=== PATIENT | male | born 1995 | race Caucasian/White ===

== ENCOUNTER 2018-03-16 10:44 | Emergency (ER) | payer BC ==
--- NOTE | 2018-03-16 11:00 | EDM.PDOC ---
ED HPI GENERAL MEDICAL PROBLEM - General Chief Complaint: Lower Extremity Injury/Pain Stated Complaint: ROLLED LEFT ANKLE Time Seen by Provider: 03/16/18 10:58 Source of Information: Reports: Patient History Limitations: Reports: No Limitations - History of Present Illness INITIAL COMMENTS - FREE TEXT/NARRATIVE: HISTORY AND PHYSICAL: History of present illness: Patient is a 22-year-old male here with complaint of left ankle injury. 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 He is able to bear some weight on it last night but this morning has been worse and is unable to walk on it. He's been taking Tylenol and icing without relief. He denies any proximal pain and no distal numbness or tingling. Review of systems: As per history of present illness and below otherwise all systems reviewed and negative. Past medical history: As per history of present illness and as reviewed below otherwise noncontributory. Surgical history: As per history of present illness and as reviewed below otherwise noncontributory. Social history: No reported history of drug or alcohol abuse. Family history: As per history of present illness and as reviewed below otherwise noncontributory. Physical exam: General: Patient sitting comfortably in no acute distress and nontoxic appearing HEENT: Atraumatic, normocephalic, pupils reactive, negative for conjunctival pallor or scleral icterus, mucous membranes moist, throat clear, neck supple, nontender, trachea midline. No meningeal signs. Lungs: Clear to auscultation, breath sounds equal bilaterally, chest nontender. Heart: S1S2, regular, negative for clicks, rubs, or overt murmur. Abdomen: Soft, nondistended, nontender. Negative for masses or hepatosplenomegaly. Negative for costovertebral tenderness. Pelvis: Stable nontender. Genitourinary: Deferred. Rectal: Deferred. Extremities: Left ankle and foot is swollen with ecchymosis to the lateral aspect of ankle and foot. Pain to palpation along the dorsal foot and lateral malleolus. negative for cords or calf pain. Neurovascular unremarkable. Neuro: Awake, alert, oriented. Cranial nerves II through XII unremarkable. Cerebellum unremarkable. Motor and sensory unremarkable throughout. Exam nonfocal. Notes: Diagnostics: X-ray left foot and ankle Therapeutics: CAM boot walker Prescriptions: None Impression: Left ankle sprain Plan: 1. Ice, elevate, and motrin as instructed 2. Follow up with orthopedics 3. Return to ED as needed as discussed Definitive disposition and diagnosis as appropriate pending reevaluation and review of above. Left Ankle Pain Score (Numeric/FACES): 7 - Related Data Allergies Allergy/AdvReac Type Severity Reaction Status Date / Time No Known Allergies Allergy Verified 03/16/18 10:54 Home Meds: Home Meds . [No Known Home Meds] 03/16/18 [History] Past Medical History - Past Health History Medical/Surgical History: Denies Medical/Surgical History Social & Family History - Tobacco Use Smoking Status *Q: Current Every Day Smoker Years of Tobacco use: 6 Packs/Tins Daily: 1 - Caffeine Use Caffeine Use: Reports: None - Recreational Drug Use Recreational Drug Use: No Review of Systems - Review of Systems Review Of Systems: ROS reveals no pertinent complaints other than HPI. ED EXAM, GENERAL - Physical Exam Exam: See Below (See dictation) Course - Vital Signs Last Recorded V/S: Last Vital Signs Temp 99.3 F 03/16/18 10:53 Pulse 89 03/16/18 10:53 Resp 18 03/16/18 10:53 BP 154/68 H 03/16/18 10:53 Pulse Ox 100 03/16/18 10:53 Departure - Departure Time of Disposition: 11:45 Disposition: Home, Self-Care 01 Condition: Good Clinical Impression: Left ankle sprain - Discharge Information Referrals: PCP,None [Primary Care Provider] - Forms: ED Department Discharge Additional Instructions: The following information is given to patients seen in the emergency department who are being discharged to home. This information is to outline your options for follow-up care. We provide all patients seen in our emergency department with a follow-up referral. The need for follow-up, as well as the timing and circumstances, are variable depending upon the specifics of your emergency department visit. If you don't have a primary care physician on staff, we will provide you with a referral. We always advise you to contact your personal physician following an emergency department visit to inform them of the circumstance of the visit and for follow-up with them and/or the need for any referrals to a consulting specialist. The emergency department will also refer you to a specialist when appropriate. This referral assures that you have the opportunity for follow-up care with a specialist. All of these measure are taken in an effort to provide you with optimal care, which includes your follow-up. Under all circumstances we always encourage you to contact your private physician who remains a resource for coordinating your care. When calling for follow-up care, please make the office aware that this follow-up is from your recent emergency room visit. If for any reason you are refused follow-up, please contact the [facility] Emergency Department at and asked to speak to the emergency department charge nurse. [facility] Professional [address], [address] [place] [address] 1. Ice, elevate, and motrin as instructed 2. Follow up with orthopedics 3. Return to ED as needed as discussed
--- NOTE | 2018-03-16 11:38 | CR ---
INDICATION: Rolled ankle yesterday. TECHNIQUE: Three views of the left ankle. COMPARISON: Today`s left foot x-rays. FINDINGS: Marked soft tissue swelling laterally. No fracture or other abnormality. IMPRESSION: Lateral ankle sprain. Dictated by Abhishek Claire MD @ Mar 16 2018 11:36AM Signed by Dr. Abhishek Claire @ Mar 16 2018 11:37AM
--- NOTE | 2018-03-16 11:40 | CR ---
INDICATION: Rolled left ankle yesterday. TECHNIQUE: Two views of the left foot. COMPARISON: Today`s left ankle x-rays. FINDINGS: Soft tissue swelling of the lateral aspect in dorsum of the foot. No fracture or other abnormality. IMPRESSION: Unremarkable except for soft tissue swelling. Dictated by Abhishek Claire MD @ Mar 16 2018 11:36AM Signed by Dr. Abhishek Claire @ Mar 16 2018 11:38AM
== END 2018-03-16 11:57 | disposition home or self-care (01) ==
LOC: MW.ED 10:44
DX: S93.402A Sprain of unspecified ligament of left ankle, initial encounter (principal); F17.210 Nicotine dependence, cigarettes, uncomplicated; X50.1XXA Overexertion from prolonged static or awkward postures, initial encounter
CPT/HCPCS: 73610-26-LT; 73610-LT; 73620-26-LT; 73620-LT; 99283